=== PATIENT | female | born 1985 | race Caucasian/White ===

== ENCOUNTER → 2024-11-23 | Day surgery (SDC) | payer BC ==
[~2024-11-23] MED LIST: PROPOFOL 10 MG/ML 20 ML VIAL IV ONE
[2024-11-23 14:52] VITALS: TEMP 98.1
[2024-11-23] MEDS: IV FLUID CONTINUATION 1,000 ML IV ONE ×2 (14:55→15:58)
[2024-11-23] MEDS: LACTATED RINGERS 1,000 ML IV SCH (15:05)
--- NOTE | 2024-11-23 16:18 | P.PCN ---
Date of Procedure: 11/23/24 Procedure(s) Performed: BRIEF HISTORY: Patient is a 39-year-old pleasant white female scheduled for an elective colonoscopy as a part of evaluation of chronic diarrhea and intermittent lower abdominal pain for the last several months duration. PROCEDURE PERFORMED: Colonoscopy with biopsy. PREOPERATIVE DIAGNOSIS: Chronic diarrhea and intermittent lower abdominal pain. IV sedation per Anesthesia. PROCEDURE: After informed consent was obtained, the patient, was brought into the endoscopy unit. IV sedation was administered by Anesthesia under continuous monitoring. Digital rectal examination was normal. Initially the Olympus CF-160 flexible video colonoscope was then inserted in the rectum, gradually advanced into the cecum without any difficulty. Careful examination was performed as the scope was gradually being withdrawn. Ileocecal valve and the appendiceal orifice were visualized and appeared normal. Terminal ileum was intubated and 20 cm visualized and appeared normal. Prep was excellent. Mucosa of the cecum, ascending colon, transverse colon, descending colon, sigmoid colon, and rectum appeared normal. Random biopsies were done from ascending and descending colon to rule microscopic/collagenous colitis. Retroflexion was performed in the rectum and no lesions were seen. The patient tolerated the procedure well. IMPRESSION: Normal-appearing colon from rectum to cecum with no evidence of colorectal neoplasia. RECOMMENDATIONS: Findings of this examination were discussed with the patient as well as her family. She was advised to follow with the biopsy results. She will be seen in the office in 2 weeks..
[2024-11-23 16:48] VITALS: BP 115/79; PULSE 71; RESP 17
== END ==
LOC: ORWHC2ENDO 14:01
PROVIDERS: ATTEND Internal Medicine Gastroenterology
DX: K52.9 Noninfective gastroenteritis and colitis, unspecified (principal); K21.9 Gastro-esophageal reflux disease without esophagitis
CPT/HCPCS: 88305; 84703; 45380; J2704